=== PATIENT | female | born 2000 | race Two or more races ===

== ENCOUNTER 2025-04-30 23:49 | Emergency (ER) | payer OTHER ==
[~2025-04-30] VITALS: Ht 162.6 cm; Wt 77.1 kg
[2025-05-01] MEDS ORDERED: KETOROLAC TROMETHAMINE 10 MG TABLET PO ONE (02:11)
[2025-05-01] MEDS ORDERED: KETOROLAC TROMETHAMINE 10 MG TABLET PO STA (02:12)
== END 2025-05-01 02:29 | disposition home or self-care (01) ==
LOC: ER 23:49
DX: S50.11XA Contusion of right forearm, initial encounter (principal); W01.0XXA Fall on same level from slipping, tripping and stumbling without subsequent striking against object, initial encounter; Y93.89 Activity, other specified; Y92.254 Theater (live) as the place of occurrence of the external cause